=== PATIENT | male | born 1970 | race Caucasian/White ===

== ENCOUNTER 2016-10-14 11:34 | Inpatient (IN) | payer MEDICAID ==
[~2016-10-14] VITALS: Ht 172.7 cm; Wt 135.2 kg
[2016-10-14 12:32] VITALS: BP 139/101
--- NOTE | 2016-10-14 14:19 | NUR ---
Patient to bed 08.
--- NOTE | 2016-10-14 14:25 | NUR ---
PT PRESENTS TO ER W/C/O EDEMA TO USMAN FEET AND GENERAL MALAISE. PT STATES HE HAS HX OF HTN AND CAD, BUT HAS NOT SEEN A DR IN 6 YRS AND HAS NOT TAKEN ANY MEDICATION SINCE THAT TIME; DENIES N/V/D; SKIN IS PINK/WARM/DRY; AAOX4 WITH EVEN AND STEADY GAIT; LUNGS CLEAR BL; HR EVEN AND REGULAR; PT DENIES ANY FEVER, CP, SOB, OR COUGH AT THIS TIME; PATIENT STATES PAIN OF 5/10 AT THIS TIME; VSS; PATIENT POSITIONED FOR COMFORT; HOB ELEVATED; BEDRAILS UP X2; BED DOWN. ER MD MADE AWARE OF PT STATUS.
[2016-10-14] MEDS ORDERED: ASPIRIN 81 MG TAB.CHEW PO ONE (15:05)
[2016-10-14 15:16] LABS: BASOPHILS # (AUTO) 0.4 K/uL (0.00-0.22); EOSINOPHILS # (AUTO) 0.2 K/uL (0-0.4); HEMATOCRIT 51.6 % (36-52); HEMOGLOBIN 16.1 g/dL (12.0-18.0); LYMPHOCYTES # (AUTO) 1.6 K/uL (2.0-11.5); LYMPHOCYTES % (AUTO) 16.8 % (20.5-51.1); MEAN CORPUSCULAR HEMOGLOBIN 27 pg (27-31); MEAN CORPUSCULAR HGB CONC 31 g/dL (33-37); MEAN CORPUSCULAR VOLUME 86 fL (80-94); MONOCYTES # (AUTO) 0.4 K/uL (0.8-1.0); MONOCYTES % (AUTO) 4.5 % (1.7-9.3); NEUTROPHILS # (AUTO) 6.7 K/uL (1.8-7.7); PLATELET COUNT (AUTO) 161 K/uL (140-450); RED BLOOD CELL COUNT(AUTO) 6.03 MIL/uL (4.20-6.10); RED CELL DISTRIBUTION WIDTH 13.7 % (11.6-13.7); WHITE BLOOD COUNT (AUTO) 9.3 K/uL (4.8-10.8)
[2016-10-14 15:32] LABS: ANION GAP 6.5 (8-16); CALCIUM 8.4 mg/dL (8.5-10.1); CARBON DIOXIDE 39.8 mmol/L (21-32); CREATININE 0.7 mg/dL (0.6-1.3); POTASSIUM 4.3 mmol/L (3.5-5.1)
--- NOTE | 2016-10-14 16:28 | NUR ---
IV INSERTED 20G ON RIGHT AC NOT ON LEFT
--- NOTE | 2016-10-14 16:39 | NUR ---
Patient will be admitted to care of DR ABARCA. Admited to TELE. Will go to room 106A. Belongings list completed. Report to JESSIE FORD.
[2016-10-14] MEDS: NACL 0.9% 1,000 ML IV SCH (16:43)
[2016-10-14] MEDS ORDERED: ONDANSETRON 4 MG/2 ML VIAL IVP PRN (16:45)
[2016-10-14] MEDS ORDERED: HYDROcodone/APAP 7.5/325 MG 1 TAB PO PRN (16:45)
[2016-10-14] MEDS ORDERED: MORPHINE SULFATE 2 MG/ML SYR IVP PRN (16:50)
[2016-10-14] MEDS ORDERED: NITROGLYCERIN 0.4 MG TAB SL PRN (16:50)
[2016-10-14 17:00] VITALS: BP 151/87
--- NOTE | 2016-10-14 17:00 | NUR ---
PATIENT ADMITTED FROM ER. PATIENT AWAKE, ALERT, ORIENTED AND AMBULATORY. NO S/S OF DISTRESS NOTED. PATIENT ON 2L O2. NO C/O PAIN AT THIS TIME. SKIN IS INTACT. NON PITTING EDEMA NOTED TO BILATERAL LOWER EXTREMITIES. PATIENT PLACED ON TELE MONITORING. BED LOWERED WITH CALL LIGHT WITHIN REACH. WILL CONTINUE TO MONITOR
[2016-10-14 17:25] LABS: APPEARANCE,URINE CLEAR (CLEAR); BLOOD, URINE NEGATIVE (NEGATIVE); COLOR,URINE YELLOW (YELLOW); LEUKOCYTE ESTERASE ,URINE NEGATIVE (NEGATIVE); NITRITE, URINE NEGATIVE (NEGATIVE); PROTEIN,URINE TRACE (NEGATIVE); UGLUCOSE NEGATIVE (NEGATIVE)
[2016-10-14 17:26] LABS: BILIRUBIN,URINE NEGATIVE (NEGATIVE)
[2016-10-14 17:27] LABS: BACTERIA,URINE RARE /HPF (None Seen); MUCUS,URINE 4+ /LPF (None Seen); RBC,URINE 0-3 /HPF (0-5); SQUAMOUS EPITHELIAL CELL,UR 0-3 /LPF (0-3 (FEW)); WBC,URINE 0-3 /HPF (0-5)
[2016-10-14 17:37] LABS: INR 1.1 (0.8-1.2); PARTIAL THROMBOPLASTIN TIME 26.5 secs (22-35.6); PROTHROMBIN TIME 10.6 secs (10.8-13.4)
[2016-10-14 17:43] LABS: CHOL/HDL RATIO 4.1 (1-4.5); FREE T4 (FREE THYROXINE) 1.16 ng/dL (0.76-1.46); PHOSPHORUS 3.3 mg/dL (2.5-4.9); THYROID STIMULATING HORMONE 1.09 uIU/mL (0.34-3.76)
[2016-10-14 17:47] LABS: AMPHETAMINE, URINE NEG. ng/ml (NEG <=1000); BARBITURATE, URINE NEG. ng/ml (NEG <=200); BENZODIAZEPINE, URINE NEG. ng/mL (NEG <=200); CANNABINOID, URINE NEG. ng/mL (NEG <=50); COCAINE, URINE NEG. ng/mL (NEG <=300); OPIATE, URINE NEG. ng/mL (NEG <=2000); PHENCYCLIDINE SCREEN,URINE NEG. ng/mL (NEG <=25)
[2016-10-14] MEDS ORDERED: hePARIN / DEXT 5% PREMIX 250 ML IV SCH (18:25)
[2016-10-14] MEDS ORDERED: HEPARIN PER PHARMACY MC PRN (18:25)
[2016-10-14] MEDS: hePARIN / DEXT 5% PREMIX 250 ML IV SCH (18:57)
--- NOTE | 2016-10-14 19:08 | NUR ---
HEPARIN DRIP INITIATED
--- NOTE | 2016-10-14 19:20 | NUR ---
PATIENT REPORT GIVEN AT BEDSIDE. PATIENT ENDORSED IN STABLE CONDITION
--- NOTE | 2016-10-14 19:21 | NUR ---
RECEIVED REPORT, ASSUMED CARE. PT AAOX4. FAMILY AT BEDSIDE. RESPIRATION EVEN AND UNLABORED,NO S/S OF RESP DISTRESS, DENIES PAIN AT THIS TIME. O2 AT 2L VIA NC. IVPB HEPARIN DRIP INFUSING WELL AT 16ML/HR. NO ADVERSE REACTION AT THIS TIME. RT AC IV ACCESS, GAUGE 20 INTACT AND PATENT, NO S/S OF INFILTRATION AT THIS TIME. PT ON TELE MONITOR, FULL CODE STATUS.DISCUSSED PLAN OF CARE. PT VERBALIZED UNDERSTANDING. ALL NEEDS ANTICIPATED. CALL LIGHT PLACED WITHIN EASY REACH. WILL CONTINUE TO MONITOR.
[2016-10-14 20:00] VITALS: BP 149/86
[2016-10-14] MEDS: ATORVASTATIN 20 MG TAB PO SCH (20:21)
[2016-10-14] MEDS: DOCUSATE SODIUM 100 MG GELCAP PO SCH (20:21)
[2016-10-14] MEDS: METOPROLOL 25 MG TAB PO SCH (20:23)
--- NOTE | 2016-10-14 20:41 | NUR ---
ROUTINE HS MEDS ADMINISTERED SCHEDULED. NO ADVERSE REACTION NOTED. WILL CONTINUE TO MONITOR.
[2016-10-15] VITALS: BP 127/76
--- NOTE | 2016-10-15 00:42 | NUR ---
ROUNDS MADE, PT SLEEPING AT THIS TIME. RESPIRATION EVEN AND UNLABORED,NO SOB, NO S/S RESPIRATORY DISTRESS. WILL CONTINUE TO MONITOR. CONTINUE ON HEPARIN DRIP ORDERED.
[2016-10-15] MEDS: hePARIN / DEXT 5% PREMIX 250 ML IV SCH ×2 (03:52→12:23)
[2016-10-15 04:00] VITALS: BP 142/77
[2016-10-15 06:47] LABS: BASOPHILS # (AUTO) 0.1 K/uL (0.00-0.22); BASOPHILS % (AUTO) 1.6 % (0.0-2.0); EOSINOPHILS # (AUTO) 0.3 K/uL (0-0.4); EOSINOPHILS % (AUTO) 3.1 % (0.0-4.0); HEMOGLOBIN 15.4 g/dL (12.0-18.0); LYMPHOCYTES # (AUTO) 1.2 K/uL (2.0-11.5); LYMPHOCYTES % (AUTO) 13.6 % (20.5-51.1); MEAN CORPUSCULAR HEMOGLOBIN 27 pg (27-31); MEAN CORPUSCULAR HGB CONC 31 g/dL (33-37); MEAN CORPUSCULAR VOLUME 86 fL (80-94); MONOCYTES # (AUTO) 0.5 K/uL (0.8-1.0); MONOCYTES % (AUTO) 5.8 % (1.7-9.3); NEUTROPHILS # (AUTO) 6.8 K/uL (1.8-7.7); NEUTROPHILS % (AUTO) 75.9 % (42.2-75.2); PLATELET COUNT (AUTO) 160 K/uL (140-450); RED BLOOD CELL COUNT(AUTO) 5.68 MIL/uL (4.20-6.10); RED CELL DISTRIBUTION WIDTH 13.9 % (11.6-13.7); WHITE BLOOD COUNT (AUTO) 8.9 K/uL (4.8-10.8)
[2016-10-15 07:24] LABS: ANION GAP 4.1 (8-16); CALCIUM 8.2 mg/dL (8.5-10.1); CREATININE 0.7 mg/dL (0.6-1.3); POTASSIUM 4.5 mmol/L (3.5-5.1)
--- NOTE | 2016-10-15 07:27 | NUR ---
PT AWAKE AND VERBALLY RESPONSIVE. NO C/O PAIN AT THIS TIME. NO S/S OF RESP DISTRESS. ALL NEEDS MET. ENDORSED TO NEXT SHIFT FOR CONTINUITY OF CARE. PT IN STABLE CONDITION.
[2016-10-15 07:29] LABS: MAGNESIUM 2.2 mg/dL (1.8-2.4); PHOSPHORUS 4.5 mg/dL (2.5-4.9)
[2016-10-15 07:30] LABS: CARBON DIOXIDE 41.4 mmol/L (21-32)
--- NOTE | 2016-10-15 07:30 | NUR ---
RECEIVED REPORT FROM JESSIE VALADEZ. PT IS RESTING IN BED, A/OX4, AMBULATORY, IV ON THE RT AC, PATENT, INTACT, HEPARIN DRIP IS AT 1900UNITS, PT IS ON O2 2L NC, NO S/S OF RESPIRATORY DISTRESS OR DISCOMFORT NOTED, BILATERAL LOWER EXT. EDEMA, NON-PITTING, SAFETY/FALL PRECAUTIONS ARE IN PLACE, DISCUSSED PLAN OF CARE WITH PT, PT VERBALIZED UNDERSTANDING, CALL LIGHT IS WITHIN REACH, WILL CONTINUE TO MONITOR.
[2016-10-15 08:00] VITALS: BP 121/76
[2016-10-15] MEDS: ACETAMINOPHEN 325 MG TAB PO PRN ×2 (08:03→14:56)
[2016-10-15] MEDS: LISINOPRIL 5 MG TAB PO SCH (08:39)
[2016-10-15] MEDS: METOPROLOL 25 MG TAB PO SCH ×2 (08:39→21:41)
[2016-10-15] MEDS: PANTOPRAZOLE 40 MG INJ VIAL IVP SCH (08:40)
[2016-10-15] MEDS: DOCUSATE SODIUM 100 MG GELCAP PO SCH ×2 (08:40→21:40)
[2016-10-15] MEDS: ASPIRIN 81 MG TAB.CHEW PO SCH (08:40)
--- NOTE | 2016-10-15 09:05 | NUR ---
ASKED DR. CHACON IF HE COULD PUT IN AN ORDER FOR PTT CHECK THAT IS DUE AT 1000 AM TODAY, DR. CHACON SAID HE WOULD GO AHEAD AND PUT IN THE ORDER.
--- NOTE | 2016-10-15 09:38 | NUR ---
RECEIVED A CALL FROM THE LAB TO LET ME KNOW PTT WAS 101.3.
--- NOTE | 2016-10-15 09:40 | NUR ---
PER HEPARIN PROTOCOL STOPPED HEPARIN AT THIS TIME FOR 1 HOUR AND WILL REDUCE BY 400 UNITS.
--- NOTE | 2016-10-15 10:19 | NUR ---
PATIENT HAS BEEN SCREENED AND CATEGORIZED HIGH NUTRITION RISK. PATIENT WILL BE SEEN WITHIN 1-2 DAYS OF ADMISSION. 10/15/16-10/16/[address]
--- NOTE | 2016-10-15 10:40 | NUR ---
HEPARIN IN STARTED AFTER IT WAS HELD FOR 1 HOUR, HEPARIN REDUCED BY 400 UNITS, CHANGED FROM 1900 UNITS TO 1500 UNITS.
--- NOTE | 2016-10-15 11:17 | NUR ---
PT RESTING IN BED AT THIS TIME, FAMILY IS AT BEDSIDE, CALL LIGHT WITHIN REACH.
[2016-10-15 12:00] VITALS: BP 134/74
--- NOTE | 2016-10-15 12:40 | NUR ---
10/15/16 RD INITIAL ASSESSMENT COMPLETED PLEASE REFER TO NUTRITION ASSESSMENT UNDER CARE ACTIVITY FOR ESTIMATED NUTRITIONAL NEEDS. 1. CHANGE DIET: 75 G CONSISTENT CARBOHDYRATE DIET 2. RD TO FOLLOW-UP 3-5 DAYS; MODERATE RISK GALO LUCIA RD
[2016-10-15] MEDS: NACL 0.9% 1,000 ML IV SCH (13:02)
--- NOTE | 2016-10-15 13:20 | NUR ---
PT RESTING IN BED, FAMILY IS AT BEDSIDE AT THIS TIME.
[2016-10-15] MEDS ORDERED: FUROSEMIDE 20 MG TAB PO SCH (15:30)
[2016-10-15] MEDS ORDERED: SPIRONOLACTONE 50 MG TAB PO SCH (15:30)
--- NOTE | 2016-10-15 15:30 | NUR ---
PT IS SLEEPING IN BED, CALL LIGHT IS WITHIN REACH.
[2016-10-15 16:00] VITALS: BP 132/67
--- NOTE | 2016-10-15 17:30 | NUR ---
PT RESTING IN BED AT THIS TIME, CALL LIGHT WITHIN REACH.
--- NOTE | 2016-10-15 18:20 | NUR ---
RECEIVED PHONE CALL FROM THE PHARMACY WAS TOLD THE HEPARIN DRIP HAD TO BE CALCULATED BY NEW WEIGHT WHICH IS 83 KILOS, BASED ON THE NEW PTT HEPARIN NEEDS TO BE INCREASED BY 200 UNITS NOT 300 UNITS, I ASKED IF THEY WERE GOING TO CHANGE THE PROTOCOL IN THE EMAR WITH THE NEW WEIGHT, I WAS TOLD THEY WERE GOING TO MAKE A NOTE FOR JOSEFINA TO CHANGE IT IN THE MORNING.
--- NOTE | 2016-10-15 19:30 | NUR ---
ENDORSED PT TO RN. ZINA FOR CONTINUITY OF CARE. PT STABLE AT THIS TIME, FAMILY IS AT BEDSIDE. Addendum: 10/15/16 at 2018 by Elle Stern RN I DID INFORM ZINA THE HEPARIN DRIP WAS GOING TO BE ADJUSTED BASED ON THE PATIENT NEW WEIGHT 83 KILOS AND NEXT ORDER FOR PTT WAS 2200.
--- NOTE | 2016-10-15 19:31 | NUR ---
RECEIVED REPORT FROM DAY RN FOR CONTINUITY OF CARE. PATIENT IS A&OX4, DISCUSSED PLAN OF CARE WITH PATIENT AND FAMILY MEMBERS AT BEDSIDE, VERBALIZED UNDERSTANDING. SHIFT ASSESSMENT DONE, VS TAKEN, STABLE AT THIS TIME. NO S/S OF RESPIRATOR DISTRESS NOTED ON ROOM AIR. PATIENT DENIES PAIN. IV TO RT AC PATENT AND INFUSING HEPARIN DRIP. BLE EDEMA NOTED, ALL OTHER SKIN INTACT. SAFETY PRECAUTIONS ENFORCED. CALL LIGHT WITHIN REACH, WILL CONTINUE TO MONITOR.
[2016-10-15 20:00] VITALS: BP 126/69
[2016-10-15] MEDS: ATORVASTATIN 20 MG TAB PO SCH (21:40)
--- NOTE | 2016-10-15 21:40 | NUR ---
DUE MEDICATIONS ADMINISTERED, TOLERATED WELL AND VERBALIZED UNDERSTANDING OF USE. CALL LIGHT WITHIN REACH. WILL CONTINUE TO MONITOR.
--- NOTE | 2016-10-15 23:23 | NUR ---
RECEIVED PTT FROM LAB AT 54.8, NO CHANGE TO HEPARIN DRIP PER PROTOCOL.
[2016-10-16] VITALS (16 sets, daily range): BP systolic 99–135; BP diastolic 47–114
--- NOTE | 2016-10-16 00:20 | NUR ---
VS TAKEN, STABLE. PATIENT RESTING AT THIS TIME. NO S/S OF DISTRESS OR DISCOMFORT NOTED. HEPARIN DRIP INFUSING, CALL LIGHT WILL WITHIN REACH. WILL CONTINUE TO MONITOR.
--- NOTE | 2016-10-16 02:50 | NUR ---
PT C/O PAIN, ADMINISTERED MEDICATION PER MD ORDER. VS REMAIN STABLE. WILL CONTINUE TO MONITOR.
--- NOTE | 2016-10-16 05:15 | NUR ---
PT VOMITED X1, ADMINISTERED ZOFRAN PER MD ORDER. RECEIVED PTT 58.7, NO CHANGE PER PROTOCOL.
[2016-10-16 05:31] LABS: BASOPHILS % (AUTO) 0.4 % (0.0-2.0); EOSINOPHILS # (AUTO) 0.1 K/uL (0-0.4); EOSINOPHILS % (AUTO) 0.6 % (0.0-4.0); HEMATOCRIT 49.2 % (36-52); HEMOGLOBIN 15.5 g/dL (12.0-18.0); LYMPHOCYTES # (AUTO) 0.8 K/uL (2.0-11.5); LYMPHOCYTES % (AUTO) 7.5 % (20.5-51.1); MEAN CORPUSCULAR HEMOGLOBIN 27 pg (27-31); MEAN CORPUSCULAR HGB CONC 31 g/dL (33-37); MEAN CORPUSCULAR VOLUME 86 fL (80-94); MONOCYTES # (AUTO) 0.4 K/uL (0.8-1.0); NEUTROPHILS % (AUTO) 87.5 % (42.2-75.2); PLATELET COUNT (AUTO) 157 K/uL (140-450); RED CELL DISTRIBUTION WIDTH 13.2 % (11.6-13.7)
[2016-10-16 06:02] LABS: ANION GAP 6.2 (8-16); CALCIUM 8.3 mg/dL (8.5-10.1); CREATININE 0.6 mg/dL (0.6-1.3); POTASSIUM 4.3 mmol/L (3.5-5.1)
[2016-10-16 06:06] LABS: CARBON DIOXIDE 40.1 mmol/L (21-32)
[2016-10-16 06:11] LABS: MAGNESIUM 2.1 mg/dL (1.8-2.4); PHOSPHORUS 3.6 mg/dL (2.5-4.9)
[2016-10-16 06:16] LABS: WHITE BLOOD COUNT (AUTO) 10.3 K/uL (4.8-10.8)
--- NOTE | 2016-10-16 07:23 | NUR ---
ENDORSED PATIENT TO DAY RN FOR CONTINUITY OF CARE, PATIENT IS IN STABLE CONDITION.
--- NOTE | 2016-10-16 07:25 | NUR ---
RECEIVED REPORT FROM JESSIE IZAGUIRRE. PT IS RESTING IN BED, A/OX2, IV ON THE RT AC, PATENT, INTACT, HEPARIN DRIP IS AT 1700UNITS, PT IS ON O2 2L NC, NO S/S OF RESPIRATORY DISTRESS OR DISCOMFORT NOTED, BILATERAL LOWER EXT. EDEMA, NON-PITTING, SAFETY/FALL PRECAUTIONS ARE IN PLACE, DISCUSSED PLAN OF CARE WITH PT, PT VERBALIZED UNDERSTANDING, CALL LIGHT IS WITHIN REACH, WILL CONTINUE TO MONITOR.
[2016-10-16] MEDS: NACL 0.9% 1,000 ML IV SCH ×2 (08:47→18:28)
[2016-10-16] MEDS: PANTOPRAZOLE 40 MG INJ VIAL IVP SCH (09:22)
[2016-10-16] MEDS: LISINOPRIL 5 MG TAB PO SCH (09:22)
[2016-10-16] MEDS: DOCUSATE SODIUM 100 MG GELCAP PO SCH ×2 (09:23→21:00)
[2016-10-16] MEDS: ASPIRIN 81 MG TAB.CHEW PO SCH (09:23)
[2016-10-16] MEDS: METOPROLOL 25 MG TAB PO SCH ×2 (09:23→21:00)
--- NOTE | 2016-10-16 09:23 | NUR ---
PT RESTING IN BED, DUE MEDICATIONS GIVEN, PT TOLERATED WELL, CALL LIGHT WITHIN REACH WILL CONTINUE TO MONITOR.
--- NOTE | 2016-10-16 11:00 | NUR ---
PT NOTED TO BE LETHARGIC, AWAKEN WHEN SHAKEN, CHECK VS, BP: 131/74, HR:101, R:20, O2 94% AT O2 3L NC, BLOOD SUGAR CHECKED 253.
--- NOTE | 2016-10-16 11:15 | NUR ---
I WENT AHEAD NOTIFIED DR. WALKER OF THE PATIENT'S CURRENT CONDITIONS, DOCTOR SAID SHE WOULD GO IN TO SEE PT AND TALK TO THE FAMILY.
--- NOTE | 2016-10-16 11:43 | NUR ---
DR. WALKER IN TO SEE PATIENT, PER. DOCTOR ORDER D-DIMER STAT. ORDER WAS PUT IN.
[2016-10-16] MEDS ORDERED: INSULIN LISPRO SLIDING SCALE 100 UNITS/ML VIAL SUBQ PRN (12:10)
--- NOTE | 2016-10-16 12:15 | NUR ---
PER. DR. WALKER HOLD HEPARIN DRIP RIGHT NOW. WILL ORDER CT-SCAN OF THE HEAD.
--- NOTE | 2016-10-16 13:26 | NUR ---
PT PICKED UP TO HAVE CT-SCAN OF THE HEAD DONE.
--- NOTE | 2016-10-16 14:33 | NUR ---
RECEIVED CRITICAL RADIOLOGY CT-SCAN OF THE HEAD VIA FAX. DR. AARON KENYON.
--- NOTE | 2016-10-16 15:15 | NUR ---
DR. WALKER IN PT ROOM TALKING TO FAMILY AT BEDSIDE, INFORMED FAMILY OF PT CONDITION AND TRANSFER TO ICU.
--- NOTE | 2016-10-16 15:20 | NUR ---
CALLED ICU GAVE REPORT TO JESSIE NUNES.
--- NOTE | 2016-10-16 15:40 | NUR ---
PATIENT TRANSFERRED TO ICU VIA [facility] PT STABLE UPON ARRIVAL TO ICU.
--- NOTE | 2016-10-16 16:00 | NUR ---
TRANSFERRED PT FROM TELE BY [facility], PT LETHARGIC, BEDSIDE MONITOR SHOWS ST, PT ON O2 NC 3L/MIN, BREATH SOUND DIMINISHED. ABDOMEN SOFT WITH ACTIVE BOWEL SOUND. IV TO RIGHT AC #20, SALINE LOCKED,SITE INTACT AND PATENT. SKIN INTACT.CALL LIGHT IN REACH, HOB ELEVATED 30 DEGREES WITH LOW BED POSITION, FAMILY AT BEDSIDE. WILL CONTINUE TO MONITOR PT.
--- NOTE | 2016-10-16 16:09 | NUR ---
1510 CALLED [facility] AND SPOKE WITH CORIE IN ADMITTING [phone] Rochelle ZEPEDA CALLED TO REQUEST A BED AND WILL BE THE ACCEPTING PHYSICIAN. FAXED REQUESTED INFORMATION TO [phone]. CORIE WILL PROVIDE BED CONTROL WITH INFORMATION AND CALL WHEN BED AVAILABLE.
--- NOTE | 2016-10-16 16:13 | NUR ---
0195 CALLED [facility] [place] AND SPOKE WITH REPAIRER SWITCHGEAR RAQUEL AND SHE INDICATED THAT DR VALDIVIA HAS NOT CALLED YET TO REQUEST BED AND CONFIRM THAT HE WILL BE THE ACCEPTING PHYSICIAN. HOUSE SUP [phone] AND FAXED FACESHEET AND ORDER TO [phone].
[2016-10-16] MEDS ORDERED: ALBUTEROL SULFATE/IPRATROPIU 3 ML SOL IH PRN (16:20)
--- NOTE | 2016-10-16 16:20 | NUR ---
DR. ABARCA IN TO SEE PT.
[2016-10-16] MEDS ORDERED: FUROSEMIDE 40 MG/4 ML VIAL IVP SCH (16:32)
--- NOTE | 2016-10-16 16:38 | NUR ---
NOTIFIED DR. ABARCA ABG RESULTS, RT BILL SPOKE WITH DR. ABARCA. PER DR. ABARCA, CALL ER FOR INTUBATION.
[2016-10-16 16:42] LABS: BASOPHILS # (AUTO) 0.3 K/uL (0.00-0.22); BASOPHILS % (AUTO) 2.2 % (0.0-2.0); EOSINOPHILS # (AUTO) 0.2 K/uL (0-0.4); HEMATOCRIT 52.3 % (36-52); HEMOGLOBIN 16.1 g/dL (12.0-18.0); LYMPHOCYTES # (AUTO) 0.5 K/uL (2.0-11.5); MEAN CORPUSCULAR HEMOGLOBIN 27 pg (27-31); MEAN CORPUSCULAR HGB CONC 31 g/dL (33-37); MEAN CORPUSCULAR VOLUME 87 fL (80-94); MONOCYTES # (AUTO) 0.3 K/uL (0.8-1.0); MONOCYTES % (AUTO) 2.2 % (1.7-9.3); NEUTROPHILS % (AUTO) 89.6 % (42.2-75.2); PLATELET COUNT (AUTO) 158 K/uL (140-450); RED BLOOD CELL COUNT(AUTO) 6.02 MIL/uL (4.20-6.10); RED CELL DISTRIBUTION WIDTH 13.4 % (11.6-13.7); WHITE BLOOD COUNT (AUTO) 12.3 K/uL (4.8-10.8)
[2016-10-16 16:45] LABS: BLOOD GAS PH 7.085 (7.35-7.45)
[2016-10-16 16:46] LABS: BLOOD GAS BASE EXCESS 9.5 mmol/L (-2.0-2.0); BLOOD GAS HCO3 47.4 mmol/L; BLOOD GAS PCO2 161.8 mmHg (20-50); BLOOD GAS PO2 67.6 mmHg
--- NOTE | 2016-10-16 16:48 | NUR ---
PRESENT AT BEDSIDE TO INTUBATE PT.
--- NOTE | 2016-10-16 17:10 | NUR ---
BARBOZA CATH INSERTED, 900 ML LIGHT IBIS URINE NOTED ,STERILE SKILL MAINTAINED.
--- NOTE | 2016-10-16 17:20 | NUR ---
RECIVED PT ICU ON 3LPM NC SAT .92 ABG RAWN CALLED INTO DR REKHA DA SILVA CALLED ER DR KING TO INTUBATE BAGGED PT 100%15LPM VIA AMBUBAG PT INTUBATED BY DR KING WITH 8.0 ETT 24 AT [facility] WITH SETTINGS CHARTED INTUBATION WENT WELL BREATH SOUNDS PRESENT BILAT RHONCHI X RAY DONE AMBU BAG AT BEDSIDE VENT PLUGGED INTO RED OUTLET
[2016-10-16] MEDS ORDERED: ETOMIDATE 20 MG/10 ML VIAL IVP SCH (17:29)
[2016-10-16] MEDS ORDERED: SUCCINYLCHOLINE CHLORIDE 200 MG/10 ML VIAL IVP SCH (17:29)
[2016-10-16 17:36] LABS: ANION GAP 3.8 (8-16); CALCIUM 8.2 mg/dL (8.5-10.1); CREATININE 0.8 mg/dL (0.6-1.3); POTASSIUM 5.4 mmol/L (3.5-5.1)
[2016-10-16 17:37] LABS: CARBON DIOXIDE 43.6 mmol/L (21-32)
--- NOTE | 2016-10-16 17:38 | NUR ---
RECEIVED CRITICAL REPORT, CO2 43.6, TROPONIN 0.310, CALLED DR. WALKER, NO ORDER RECEIVED.
[2016-10-16] MEDS ORDERED: PIPER/TAZO 3.375GM/D5W PREMIX 50 ML IV SCH (18:00)
--- NOTE | 2016-10-16 18:58 | NUR ---
PT'S FAMILY AT BEDSIDE.
[2016-10-16] MEDS ORDERED: ALBUTEROL SULFATE/IPRATROPIU 3 ML SOL IH SCH ×2 (19:00→23:00)
--- NOTE | 2016-10-16 19:00 | NUR ---
RCV'D PT ON A VENTILATOR SETTINGS ARE AC 12, 400, 35%, +5. PT HAS ETT SIZE 8.0 AT 24 AT THE LIP ON THE RT SIDE OF MOUTH. VENT IS CONNECTED TO RED OUTLET. ALARMS ARE WORKING AND AUDIBLE. AMBU BAG AT BEDSIDE. BS ARE CLEAR PT SPO2 IS 92%. PT IS AWAKE AND ALERT. AT BEDSIDE. WILL CONTINUE TO MONITOR.
--- NOTE | 2016-10-16 19:11 | NUR ---
REPORT GIVEN TO CRISTINA, PT IS AWAKE, ALERT AT THIS TIME.
--- NOTE | 2016-10-16 19:12 | NUR ---
RECEIVED REPORT FROM DAY NURSE JESSIE DURAN FOR TRANSFER OF CARE. PT OPENS EYES SPONTANEOUSLY AND FOLLOWS COMMANDS. PT IS ETT TO VENT WITH CURRENT SETTINGS AT FIO2 35%, VT 400, A/C 12, PEEP 5 WITH NO S/S OF ACUTE RESP DISTRESS NOTED AT THIS TIME. LUNG SOUNDS CLEAR UPON AUSCULTATION. LEAD PROJECT ENGINEER SHOWS SR AT THIS TIME. PT HAS RIGHT IV AC #20G RUNNING NS AT AT THIS TIME SITE IS PATENT DRY AND INTACT. PT ABDOMEN IS LARGE WITH ACTIVE BOWEL SOUNDS. PT SKIN IS INTACT. BARBOZA CATHETER IN PLACE DRAINING VIA GRAVITY. BED IN LOW POSITION, HOB UP 30 DEGREES. FLACC 0 AT THIS TIME. WILL CONTINUE TO CLOSELY MONITOR. AT BEDSIDE.
[2016-10-16] MEDS ORDERED: LORazepam 2 MG/ML VIAL IVP PRN (19:15)
--- NOTE | 2016-10-16 19:15 | NUR ---
PER DR LEE NEW SETTINGS CHANGES ARE AC 14,500,35%,+5. CHANGES DONE. WILL CONTINUE TO MONITOR.
[2016-10-16] MEDS ORDERED: fentaNYL 0.05 MG/ML VIAL IVP PRN (19:25)
--- NOTE | 2016-10-16 19:48 | NUR ---
DR LEE HERE ON THE UNIT TO SEE PATIENT
[2016-10-16 19:53] LABS: BLOOD GAS PCO2 64.9 mmHg (20-50); BLOOD GAS PH 7.408 (7.35-7.45); BLOOD GAS PO2 47.2 mmHg
[2016-10-16 19:54] LABS: BLOOD GAS BASE EXCESS 11.9 mmol/L (-2.0-2.0); BLOOD GAS O2 SAT% 89.6 % (92.0-98.5)
--- NOTE | 2016-10-16 19:57 | NUR ---
ABG DONE WITHOUT INCIDENT. RESULTS GIVEN TO DR LEE. NEW SETTINGS ARE AC 14, 450, 50%, +5. CHANGES MADE. PT IS AWAKE ALERT AND CALM. WILL CONTINUE TO MONITOR.
[2016-10-16] MEDS ORDERED: PROPOFOL 1000 MG/100 ML PREMIX 100 ML IV PRN (20:00)
--- NOTE | 2016-10-16 20:00 | NUR ---
1950 SPOKE WITH DENISSE CAMACHOHEAVY FORGING MACHINE OPERATOR AT [facility] [place] [place] [phone] AND SHE CONFIRMED THAT THEY HAVE AN ICU BED FOR PT AND HOSPITALIST AND NEURO TO ACCEPT PT. CALLED ICU AND SPOKE WITH OLLIE CHARGE NURSE AND CONFIRMED PT TO TRANSFER GISELE AND TO CALL [facility] FOR CCT TRANSPORT AND CALL [facility] [place] [place] WITH ETA.
--- NOTE | 2016-10-16 20:53 | NUR ---
2013 SPOKE WITH OLLIE CHARGE NURSE AND [facility] CCT ETA IS 2AM. CALLED [facility] AND SPOKE WITH DISPATCHER REID AND REQUESTED EARLIER TRANSPORT DUE TO PT'S CRITICAL CONDITION STATED SHE WOULD INFORM HER PRESS OPERATOR. CALLED [facility] AND THEY DO NOT HAVE CCT AVAILABLE UNTIL TOMORROW. 2026 SPOKE WITH OLLIE ICU CHARGE NURSE AND SHE STATED RECEIVED A CALL FROM [facility] AND THEY WILL HAVE CCT ETA AT [address] [facility] [place]. DR ABARCA GIVEN UPDATE.
[2016-10-16] MEDS ORDERED: levETIRAcetam 1,000 MG in NACL 0.9% 100 ML IV SCH (21:00)
[2016-10-16] MEDS: ATORVASTATIN 20 MG TAB PO SCH (21:00)
--- NOTE | 2016-10-16 21:00 | NUR ---
ABG DONE WITHOUT INCIDENT. RESULTS GIVEN TO DR LEE. PER DR LEE CHANGE PEEP TO 6. CHANGES MADE. WILL CONTINUE TO MONITOR.
--- NOTE | 2016-10-16 21:00 | NUR ---
PO MEDS NOT GIVEN AT THIS TIME. DUE TO NO ACCESS AT THIS TIME.
[2016-10-16 21:02] LABS: BLOOD GAS PH 7.409 (7.35-7.45)
--- NOTE | 2016-10-16 21:02 | NUR ---
PT STARTED ON PROPOFOL DRIP. CURRENT BP IS 108/47
[2016-10-16 21:03] LABS: BLOOD GAS PCO2 61.4 mmHg (20-50)
[2016-10-16 21:04] LABS: BLOOD GAS BASE EXCESS 10.4 mmol/L (-2.0-2.0); BLOOD GAS O2 SAT% 95.2 % (92.0-98.5); BLOOD GAS PO2 65.6 mmHg
[2016-10-16] MEDS ORDERED: levETIRAcetam 100 MG/ML VIAL IV ONE (21:09)
--- NOTE | 2016-10-16 21:33 | NUR ---
REPORT CALLED AND GIVEN TO [facility] NURSE JESSIE AUSTIN FOR TRANSFER OF CARE. [facility] ON UNIT. AT BEDSIDE.
--- NOTE | 2016-10-16 21:45 | NUR ---
PT TAKEN ON THE UNIT VIA GURNEY WITH [facility]. PT VITALS STABLE AT THIS TIME. NO S/S OF RESP DISTRESS NOTED AT THIS TIME. WILL CONTINUE TO MONITOR.
--- NOTE | 2016-10-16 21:50 | NUR ---
PT TAKEN BY [facility]. NO SOB OR DISTRESS NOTED.
== END 2016-10-16 21:45 | disposition short-term general hospital (02) | DRG 190 ==
LOC: MED 11:34 → MTU 16:48 → MIC 10-16 16:00
PROVIDERS: ADMIT Family Medicine; ATTEND Family Medicine
PROC: 5A1935Z Respiratory Ventilation, Less than 24 Consecutive Hours (ICD-10-PCS; principal; 2016-10-16)
PROC: 0BH17EZ Insertion of Endotracheal Airway into Trachea, Via Natural or Artificial Opening (ICD-10-PCS; 2016-10-16)
DX: I21.4 Non-ST elevation (NSTEMI) myocardial infarction (principal); G93.6 Cerebral edema; I60.9 Nontraumatic subarachnoid hemorrhage, unspecified; J96.01 Acute respiratory failure with hypoxia; J96.02 Acute respiratory failure with hypercapnia; N17.0 Acute kidney failure with tubular necrosis; I42.9 Cardiomyopathy, unspecified; Z68.42 Body mass index [BMI] 45.0-49.9, adult; I50.43 Acute on chronic combined systolic (congestive) and diastolic (congestive) heart failure; E11.65 Type 2 diabetes mellitus with hyperglycemia; E66.2 Morbid (severe) obesity with alveolar hypoventilation; I25.110 Atherosclerotic heart disease of native coronary artery with unstable angina pectoris; I07.1 Rheumatic tricuspid insufficiency; I11.0 Hypertensive heart disease with heart failure; E78.5 Hyperlipidemia, unspecified; Z91.19 Patient's noncompliance with other medical treatment and regimen; Z91.14 Patient's other noncompliance with medication regimen
CPT/HCPCS: 36415; 36600; 70450; 71010; 80048; 80305; 81001; 82150; 82803; 82948; 83036; 83690; 83735; 83880; 84100; 84439; 84443; 84484; 85025; 85379; 85610; 85730; 87081; 93005; 94002; 94640; 99285; C9113; J1644; J1815; J1940; J1953; J2270; J2405; J2543; J2704; J7030; J7620; Q0092